=== PATIENT | male | born 1995 | race Caucasian/White ===

== ENCOUNTER 2019-07-21 20:08 | Emergency (ER) | payer OTHER ==
[~2019-07-21] VITALS: Ht 165.1 cm; Wt 72.6 kg
[2019-07-21] MEDS ORDERED: DOXYCYCLINE 10100 MG PO (20:36)
[2019-07-21] MEDS ORDERED: ZYRTEC10 MG PO (20:36)
[2019-07-21] MEDS ORDERED: PREDNISONE 20 M20 MG PO (20:36)
[2019-07-21 20:44] VITALS: BP 126/69
== END 2019-07-21 20:57 | disposition home or self-care (01) ==
LOC: ER 20:08
DX: S30.860A Insect bite (nonvenomous) of lower back and pelvis, initial encounter (principal); S40.862A Insect bite (nonvenomous) of left upper arm, initial encounter; Y99.8 Other external cause status; Z91.010 Allergy to peanuts; Z88.8 Allergy status to other drugs, medicaments and biological substances; W57.XXXA Bitten or stung by nonvenomous insect and other nonvenomous arthropods, initial encounter; Y92.89 Other specified places as the place of occurrence of the external cause; Y93.89 Activity, other specified